=== PATIENT | female | born 1970 | race Caucasian/White ===

== ENCOUNTER 2016-08-01 06:21 | Day surgery (SDC) | payer OTHER ==
[~2016-08-01] VITALS: Ht 172.7 cm; Wt 78.5 kg
--- NOTE | ~2016-08-01 | O ---
[facility] [place] [address] OPERATIVE REPORT Name: CHELSEA ALMANZAR Room #: 150-7 [facility] Amanda#: [id number] Admission: 08/01/16 Attend Phys: Jairo Myrick Discharge: Date of : 66 Report #: [id number] THIS REPORT FOR: //name// CC: Jairo Hilario DATE OF SERVICE: 08/01/2016 PREOPERATIVE DIAGNOSES: Right shoulder pain, rotator cuff tear, impingement syndrome, acromioclavicular joint arthrosis. POSTOPERATIVE DIAGNOSES: Right shoulder rotator cuff tear involving upper border subscapularis and anterior supraspinatus, degenerative unstable flap tear of superior labrum, long head of biceps tendon tear, subacromial impingement syndrome, subacromial bursitis and acromioclavicular joint arthrosis. PROCEDURE PERFORMED: Right shoulder arthroscopy, rotator cuff repair of the subscapularis and supraspinatus, subacromial decompression, excision of distal clavicle, arthroscopic biceps tenodesis, extensive debridement. SURGEON: Jairo Castillo M.D. ALTERNATIVE MEDICINE PRACTITIONER: Beth Ayala PA-C. ANESTHESIA: General with preoperative interscalene block. FLUIDS: 1000 mL crystalloid. ESTIMATED BLOOD LOSS: Minimal. DESCRIPTION OF PROCEDURE: After proper identification of the patient and operative site in preoperative holding area, the operative site was signed by myself. Prophylactic antibiotics given. The patient elected to receive an interscalene block after reviewing the risks, benefits, alternatives and potential complications with anesthesia. After satisfactory block, the patient was brought back to the operative suite. After induction of satisfactory general endotracheal anesthesia, the right arm was examined. It was stable throughout a full arc of motion comparable to the preoperative assessment. The patient was then carefully positioned in the left lateral decubitus position. Beanbag and axillary roll were utilized to support the torso. The right shoulder was sterilely prepped and draped in usual manner and placed in 10 pounds balanced arthroscopic suspension. Qualified assistant head cashier was utilized throughout the entire procedure to aid in patient limb positioning, visualization of the arthroscope, instrument and suture passage as well as closure and sling application. [facility] [address] [place] [address] OPERATIVE REPORT Name: CHELSEA ALMANZAR Room #: 150-7 [facility] M.R.#: [id number] Admission: 08/01/16 Attend Phys: Jairo Myrick Discharge: Date of : 66 Report #: [id number] Posterior portal was established and was insufflated with an arthroscopic pump set at 40 mmHg. Anterior superior portal and an anterior inferior portal were created to aid in visualization purposes. The patient had an unstable flap tear of the superior labrum. This started at the approximate 2 o'clock position, extended superiorly and came back to approximately the 9:30 position. The unstable flap was debrided. Extensive degeneration was then noted of the superior labrum and there was a tear that extended into the long head of the biceps tendon. The long head of biceps tendons attachment on the superior labrum and glenoid was unstable as well as the tendon appeared to have subluxation on to the upper border of the subscapularis and there was a full thickness upper border tear of the subscapularis from the articular side. There also appeared to be a tear of the more anterior supraspinatus and the uncovered footprint was carefully debrided with a motorized shaver from this region. Chondral surfaces of the humeral head and glenoid otherwise appeared intact. The remainder of the rotator cuff was intact. Inferior labrum was intact as well as the more anterior inferior labrum. After the labral debridement, the long head of biceps tendon was released off the superior labrum and a tendon grafting stitch was applied. This was then retrieved out a separate more anterior and lateral portal from the subacromial space, so that this did not interfere with repair of the subscapularis. Free portion of the subscapularis was carefully debrided. Lesser tuberosity was prepared with sharper end curet and motorized shaver and a single 4.75 mm double-loaded SwiveLock anchor was inserted into the lesser tuberosity and suture limbs were passed in a horizontal mattress fashion through the subscapularis. These were then tied with nonsliding knots backed up with alternating half hitches. The repair construct was stable to probing and the tendon was nicely reduced to the tuberosity. The arthroscope was then introduced in the subacromial space. A thickened subacromial bursa was encountered. This was resected with motorized shaver. There was fraying on the undersurface of the coracoacromial arch and the was released but not resected off the anterolateral acromion. Prominence to the acromion was removed using motorized bur. Approximately 3-4 mm of bone was resected here. There were some enthesophytes about the inferior aspect of the acromioclavicular joint. Acromioclavicular joint arthrosis was noted. This area was seen preoperatively and a distal clavicle excision was performed using a motorized bur. Approximately, 10 mm of bone was resected and a 10 mm graft that could easily be opened within the joint space. Care was taken to preserve the superior capsular structures. The anterior supraspinatus demonstrated an approximate 12 mm crescent shape nonretracted tear. The tuberosity was prepared with a sharper end curet and motorized shaver. Any frayed portion of the tendon was carefully debrided through separate port off lateral border of the acromion. A 4.75-mm double loaded SwiveLock anchor was inserted medially. Suture lines were passed in a horizontal mattress fashion, tied with locking sliding knots backed up with alternating half hitches. These were then across and placed through a separate SwiveLock anchor more laterally based creating a double row construct. Repair was stable to probing. Subacromial space was thoroughly [facility] [address] [place] [address] OPERATIVE REPORT Name: JENELLECHELSEA LEZAMA Room #: 150-7 [facility] M.R.#: [id number] Admission: 08/01/16 Attend Phys: Jairo Myrick Discharge: Date of : 66 Report #: [id number] irrigated with normal saline. Portal was closed with simple nylon stitch. The patient will be immobilized in a sling and abduction pillow for 6 weeks postoperatively external rotation to neutral for the first 4 weeks. By: 1225 1401 Jairo Castillo MD /nt
--- NOTE | ~2016-08-01 | EKG ---
[address] [address] ELECTROCARDIOGRAM REPORT Name: CHELSEA ALMANZAR [id number] Admission: 08/01/16 Attend Phys: Jairo Myrick Discharge: 08/01/16 Date of : 66 Report #: [id number] THIS REPORT FOR: //name// [facility] Test Date: 2016-08-01 Test Time: 08:43:10 Pat Name: CHELSEA ALMANZAR Department: Room: 150 7 Gender: F Palm Gatherer: DONNA : 1970 Requested By: Jairo Castillo Order Number: [id number] MD: Kar Shepard Measurements Intervals Bostic Rate: 79 P: 8 CA: 137 QRS: 46 QRSD: 75 T: 45 QT: 369 QTc: 424 Interpretive Statements Sinus rhythm No significant abnormality No previous ECG available for comparison Electronically Signed On 08-03-2016 14:45:52 CDT by Kar Shepard [email or web address] <ELECTRONICALLY SIGNED> By: Kar Shepard MD, [facility] 08/03/16 1445 0843 2 Kar Shepard MD, FACC /EPI
[~2016-08-01 06:21] MED LIST: APAP500 PO; CITRATE OF MAG296 ML PO; FLAGYL500 MG PO; FLEXERIL PO; IBUPROFEN 800800 M1 PO; LEVAQUIN 500 M500 M9 PO; MIRALAX17 GM PO; MOBIC15 MG PO; NAPROSYN500 MG PO; NORFLEX100 MG PO; PERCOCET 5-3251 EACH PO; TRAMADOL 50 MG50 MG PO; WELLBUTRIN XL150 MG PO
[2016-08-01 09:00] VITALS: BP 132/83
[2016-08-01 13:29] VITALS: BP 132/83
[2016-08-01] MEDS ORDERED: PERCOCET PO (13:34)
[2016-08-01] MEDS ORDERED: ZOFRAN ODT4 MG DISSOLVE (13:34)
== END 2016-08-01 15:44 | disposition home or self-care (01) ==
LOC: OR 06:21 → TBA 06:21 → OR 09:51
DX: M75.101 Unspecified rotator cuff tear or rupture of right shoulder, not specified as traumatic (principal); M75.41 Impingement syndrome of right shoulder; M19.011 Primary osteoarthritis, right shoulder; F90.9 Attention-deficit hyperactivity disorder, unspecified type; F32.9 Major depressive disorder, single episode, unspecified; F17.210 Nicotine dependence, cigarettes, uncomplicated; Z90.49 Acquired absence of other specified parts of digestive tract
CPT/HCPCS: 50010; 50101; 50172; 50386; 50417; 50597; 50612; 50950; 51038; 51445; 51847; 53610; 54170; 55430; 56527; 56530; 62110; 62900; 64007; 70005

== ENCOUNTER → 2016-12-01 | Outpatient (CLI) | payer OTHER ==
[~2016-12-01] MED LIST changes: +PERCOCET PO; +ZOFRAN ODT4 MG DISSOLVE
== END ==
LOC: MRI 07:03
DX: M50.322 Other cervical disc degeneration at C5-C6 level (principal); R20.0 Anesthesia of skin

== ENCOUNTER → 2017-01-09 | Outpatient (CLI) | payer OTHER ==
[~2017-01-09] VITALS: Ht 152.4 cm; Wt 83.6 kg
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
[2017-01-09 09:26] VITALS: BP 132/83
== END | disposition home or self-care (01) ==
LOC: PAIN 07:06
DX: M54.12 Radiculopathy, cervical region (principal); M48.02 Spinal stenosis, cervical region; Z68.36 Body mass index [BMI] 36.0-36.9, adult; Z98.890 Other specified postprocedural states; F41.9 Anxiety disorder, unspecified; F32.9 Major depressive disorder, single episode, unspecified; Z79.899 Other long term (current) drug therapy; Z87.891 Personal history of nicotine dependence; R00.0 Tachycardia, unspecified; Z90.49 Acquired absence of other specified parts of digestive tract

== ENCOUNTER → 2017-01-30 | Outpatient (CLI) | payer OTHER ==
[~2017-01-30] VITALS: Ht 152.4 cm; Wt 82.5 kg
--- NOTE | ~2017-01-30 | HPC ---
[facility] [place] [address] [place] [address] PAIN MANAGEMENT CONSULTATION Name: CHELSEA ALMANZAR Room #: REG BABATUNDESanthosh Patel#: [id number] Admission: 01/30/17 Attend Phys: Yuan Matute DO Discharge: Date of : 66 Report #: [id number] THIS REPORT FOR: //name// CC: Vishnu Matute The patient is a pleasant 46-year-old female, seen in consultation, given a single cervical epidural injection. She reported about 65-80% relief overall ongoing, having some ongoing radicular symptoms on the right side, however. PHYSICAL EXAMINATION: Shows positive Lhermitte's, slight decreased right deltoid strength (she is status post right shoulder rotator cuff repair about 6 months ago). Hand grasp is symmetric. Deep tendon reflexes are getting closer to symmetric. We reviewed her MRI findings of cervical spine; while there is noted pathology, it does not appear to be surgical. ASSESSMENT: Symptomatic cervical radiculopathy with clinical improvement following 1 epidural injection, symptoms remain problematic. RECOMMENDATION: Repeat epidural injection under fluoroscopy today. Follow up in 3 weeks for reevaluation. PROCEDURE: Cervical epidural injection under fluoroscopy. PROCEDURE NOTE: After written and informed consent was obtained including risk of dural puncture, spinal cord trauma, paralysis and increased pain, the patient was taken to the fluoroscopy suite and placed in the prone position, with appropriate abdominal bolstering, neck was flexed, palms under the thighs. Skin was prepped with ChloraPrep. Sterile draping was applied. Skin wheal with 1% Xylocaine was raised. A 22-gauge 3-1/2 inch epidural Tuohy needle was placed via a midline approach at the C7/T1 interspace, advanced under biplanar fluoroscopy using continuous loss of resistance. With appropriate loss of resistance at the expected depth on lateral view, the glass loss of resistance syringe was disconnected. A low volume extension tubing was connected to the needle and a 5 mL syringe. Negative aspiration for cerebrospinal fluid or blood was noted. A 1 mL of Omnipaque was injected which showed spread within the epidural space on biplanar fluoroscopy. This was followed with 80 mg of triamcinolone plus 1 mL of 1.5% preservative Xylocaine. Needle was withdrawn to the interspinous ligament, 0.5 mL of Xylocaine was used to flush the needle. The needle was then completely withdrawn. The area was cleansed. Band-Aid was applied. The patient was allowed to move off the procedure table and ambulated [address] [address] PAIN MANAGEMENT CONSULTATION Name: CHELSEA ALMANZAR [id number] Admission: 01/30/17 Attend Phys: Yuan Matute DO Discharge: Date of : 66 Report #: [id number] to the recovery room, monitored for an appropriate period of time, discharged in good and stable condition. <ELECTRONICALLY SIGNED> By: Yuan Matute DO 01/30/17 0926 0839 0902 Yuan Matute DO /nt
[2017-01-30 08:20] VITALS: BP 127/69
== END | disposition home or self-care (01) ==
LOC: PAIN 07:05
DX: M54.12 Radiculopathy, cervical region (principal); F17.200 Nicotine dependence, unspecified, uncomplicated

== ENCOUNTER → 2017-05-21 | Outpatient (CLI) | payer OTHER ==
[~2017-05-21] MED LIST changes: +CELEXA20 MG PO
== END ==
LOC: MRI 05:27
DX: M75.101 Unspecified rotator cuff tear or rupture of right shoulder, not specified as traumatic (principal)

== ENCOUNTER → 2017-05-25 | Outpatient (CLI) | payer OTHER ==
[~2017-05-25] VITALS: Ht 152.4 cm; Wt 84.5 kg
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
[2017-05-25 09:10] VITALS: BP 135/84
== END | disposition home or self-care (01) ==
LOC: PAIN
DX: M54.12 Radiculopathy, cervical region (principal); Z68.36 Body mass index [BMI] 36.0-36.9, adult; Z79.899 Other long term (current) drug therapy; F17.210 Nicotine dependence, cigarettes, uncomplicated

== ENCOUNTER → 2017-06-09 | Outpatient (CLI) | payer OTHER | LOC: MRI 06-08 13:01 → PAIN 06-08 14:17 → MRI 06-08 16:27 | DX: M54.12 Radiculopathy, cervical region (principal) ==

== ENCOUNTER → 2017-10-02 | Outpatient (CLI) | payer OTHER ==
[~2017-10-02] VITALS: Ht 152.4 cm; Wt 82.6 kg
--- NOTE | ~2017-10-02 | HPC ---
[facility] [place] [address] PAIN MANAGEMENT CONSULTATION Name: CHELSEA ALMANZAR Room #: REG SKY Amanda#: [id number] Admission: 10/02/17 Attend Phys: Yuan Matute DO Discharge: Date of : 66 Report #: [id number] THIS REPORT FOR: //name// CC: Vishnu Matute HISTORY: The patient is a very pleasant 47-year-old female. She had prior been treated for symptomatic cervical radiculopathy, cervical epidural injections in 12/2016 and 01/2017 and another injection in May. While this has helped some with radicular pain, she still has ongoing pain in the right neck, exacerbated with cervical rotation and side bending. Radicular component are fairly nominal, though occasionally her right arm does "go to sleep." She does not have any specific radicular symptoms at this time. We looked at the diagnostic studies noting cervical spondylosis. With ongoing pain in the right side of the neck, we elected to move forward with cervical facets today. PHYSICAL EXAMINATION: VITAL SIGNS: Stable as noted in the EMR. Cervical range of motion is limited. Tenderness over the superior cervical facets on the right. No radicular component noted at this time. ASSESSMENT: 1. Symptomatic cervical spondylosis without myelopathy. 2. Cervical radiculopathy by history, symptoms relatively quiescent at this time. 3. Solitary kidney precluding use of NSAID agents. RECOMMENDATIONS: 1. The patient requested renewal of cyclobenzaprine, she uses this occasionally at bedtime. Generally, it had been written by her primary care physician. I will be happy to renew this prescription today. 2. Cervical facet injections under fluoroscopy x3, right C2-C3, C3-C4, C4-C5. 3. Follow up in 2 weeks for evaluation. If she gets 60-70% relief with the steroid injection, we will have her cancel her appointment and follow up on an as-needed basis. If she gets short-term relief with the cervical facets but no long-term relief, we may consider medial branch dorsal rami diagnostic block in consideration of radiofrequency neurolysis of the same. ASSESSMENT: Symptomatic cervical spondylosis without myelopathy. PROCEDURE: Right C2-C3, C3-C4 and C4-C5 cervical facet joint injection under fluoroscopy. PROCEDURE: After written informed consent was obtained, the patient was taken to the fluoroscopy suite and placed in prone position. After appropriate prep [address] [address] PAIN MANAGEMENT CONSULTATION Name: CHELSEA ALMANZAR TEJA [facility]: REG [facility] [id number] Admission: 10/02/17 Attend Phys: Yuan Matute DO Discharge: Date of : 66 Report #: [id number] and drape, skin wheal with Xylocaine x3 was raised. A 22-gauge stylet needle was placed to contact the posterior aspect of the right C2-C3, right C3-C4 and right C4-C5 cervical facets. AP projection showed good needle placement in the middle of the right lateral mass, lateral projections showed good needle placement in the posterior aspect of the joint. 2.7 mg of Decadron plus 1 mL of 0.5% preservative-free bupivacaine was injected at all 3 sites. All 3 needles were removed. The area was cleansed. Band-Aid applied. The patient was monitored for an appropriate period of time, discharged in good and stable condition. Fluoroscopy time was under 20 seconds. <ELECTRONICALLY SIGNED> By: Yuan Matute DO 10/05/17 0710 [id number] 1829 Yuan Matute DO /nt
[2017-10-02 08:17] VITALS: BP 119/61
== END | disposition home or self-care (01) ==
LOC: PAIN 06:55
DX: M47.812 Spondylosis without myelopathy or radiculopathy, cervical region (principal); G89.29 Other chronic pain; Z98.890 Other specified postprocedural states; Z88.0 Allergy status to penicillin; Z88.2 Allergy status to sulfonamides; Z88.8 Allergy status to other drugs, medicaments and biological substances; Z79.899 Other long term (current) drug therapy

== ENCOUNTER → 2017-10-22 | Outpatient (CLI) | payer OTHER ==
[~2017-10-22] VITALS: Ht 152.4 cm; Wt 82.6 kg
--- NOTE | ~2017-10-22 | HPC ---
[facility] [place] [address] PAIN MANAGEMENT CONSULTATION Name: CHELSEA ALMANZAR Room #: REG BABATUNDESanthosh Patel#: [id number] Admission: 10/22/17 Attend Phys: Yuan Matute DO Discharge: Date of : 66 Report #: [id number] THIS REPORT FOR: //name// CC: Vishnu Matute DATE OF SERVICE: 10/22/2017 The patient is a very pleasant 47-year-old [employer] employee prior seen for symptomatic cervical radiculopathy in the fall of last year. Pain is primarily right-sided neck. She does not have any radicular component of pain. I did do right-sided C2-C3, C3-C4, and C4-C5 cervical facet joint injections at last visit 10/02/2017. The patient returns to pain clinic today noting she has had very good relief with this, specifically noting 50% improvement. She still has some ongoing improvement. PHYSICAL EXAMINATION: Does note pain in the right side of the neck, exacerbated with rotation and side bending. Negative neural tensioning symptoms (negative Lhermitte's). Upper extremity strength is generally preserved. Skin integument is intact. Tender to palpation over the cervical facets. Of note, the patient is status post right rotator cuff repair, she rehabbed well and the range of motion in the right shoulder and arm is excellent. DIAGNOSTIC STUDIES: MRI of the cervical spine from 12/01/2016 notes degenerative disk changes with mild retrolisthesis of C4 on C5, posterior ridging and uncinate changes. ASSESSMENT: Symptomatic cervical spondylosis by clinical exam and history in a patient with a solitary kidney, precluding use of nonsteroidal antiinflammatory drug agents. RECOMMENDATION: If the patient had had good short term relief, i.e., as long as the local anesthetic lasted for several hours, would consider medial branch dorsal rami diagnostic block and neurolysis. Given the patient has had about 50% relief with ongoing relief, there is clearly a component of inflammation and she is getting some relief from the steroid. At this point, I would recommend repeating right C2-C3, C3-C4 and C4-C5 cervical facet joint injections under fluoroscopy. If this again affords incremental relief, we will simply see the patient on as needed basis. If, however, pain starts to recur and she has only modest relief, I would then consider medial branch dorsal rami diagnostic blocks and consideration of neurolysis of same. ASSESSMENT: Symptomatic cervical spondylosis without myelopathy, M47.812. [address] [address] PAIN MANAGEMENT CONSULTATION Name: CHELSEA ALMANZAR Room #: REG [facility].#: [id number] Admission: 10/22/17 Attend Phys: Yuan Matute DO Discharge: Date of : 66 Report #: [id number] RECOMMENDATIONS: We will seek authorization for right C2-C3, C3-C4 and C4-C5 cervical facet joint injections under fluoroscopy. <ELECTRONICALLY SIGNED> By: Yuan Matute DO 10/23/17 0829 1605 1832 Yuan Matute DO /nt
[2017-10-22 08:11] VITALS: BP 114/79
== END ==
LOC: PAIN 07:48
DX: M47.812 Spondylosis without myelopathy or radiculopathy, cervical region (principal); M54.12 Radiculopathy, cervical region

== ENCOUNTER → 2018-02-03 | Outpatient (CLI) | payer OTHER | LOC: RAD 01:18 | DX: Z12.31 Encounter for screening mammogram for malignant neoplasm of breast (principal) ==

== ENCOUNTER → 2018-02-23 | Outpatient (CLI) | payer OTHER ==
[~2018-02-23] MED LIST changes: +DOXYCYCLINE 10100 MG PO; +PROAIR RESPICL90 MCG INH; +TYLENOL EXTRA500 MG PO
== END ==
LOC: RAD 11:05
DX: R05 Cough (principal); R06.02 Shortness of breath

== ENCOUNTER → 2018-02-24 | Outpatient (CLI) | payer OTHER ==
[~2018-02-24] VITALS: Ht 152.4 cm; Wt 84.6 kg
--- NOTE | ~2018-02-24 | HPC ---
[facility] [address] [place] [address] PAIN MANAGEMENT CONSULTATION Name: CHELSEA ALMANZAR [facility] [id number] Admission: 02/24/18 Attend Phys: Yo Matute DO Discharge: Date of : 66 Report #: [id number] THIS REPORT FOR: //name// CC: Rlaeigh Mares Hilario DATE OF SERVICE: 02/24/2018 REFERRING PHYSICIAN: Raleigh Carey M.D. CHIEF COMPLAINT: Neck pain and right upper extremity pain with paresthesias. HISTORY OF PRESENT ILLNESS: As you know, the patient is a pleasant 47-year-old female followed by my partner, Dr. Yuan Matute originally for cervical spondylosis with radicular symptoms and chronic cervical radiculopathy. The patient has returned today in followup visit indicating a pain level of 5/10. She states she continues to experience numbness, tingling, throbbing and aching. She indicates pain is exacerbated with lying down, turning her head and lifting. Pain medication and massage therapy appeared to improve pain. The patient underwent intra-articular facet injections on the right at C2-C3, C3-C4, C4-C5 with improvement of about 0%-5%. She returns today to adjust medications and discuss other treatment options. ALLERGIES: PENICILLIN, SULFA, EPINEPHRINE, ERYTHROMYCIN, ADHESIVE TAPE and NICKEL. CURRENT MEDICATIONS: Bupropion XL 150 mg once a day, citalopram 20 mg once a day, cyclobenzaprine 10 mg p.o. at bedtime, doxycycline 100 mg twice a day, albuterol 2 puffs q. 4 hours p.r.n., Tylenol Extra Strength 500 mg q. 4 hours p.r.n. SOCIAL HISTORY: The patient denies tobacco, alcohol or IV or illicit drug use. She is unaccompanied today at today's visit. IMAGING DATA: There is no new imaging available. PHYSICAL EXAMINATION: VITAL SIGNS: Blood pressure 134/79, pulse 82 and respiratory rate 16 and unlabored. The patient is 97% on room air. Height 5 feet tall, weight 186.4 pounds and BMI calculated 36.4. GENERAL: Well-developed, well-nourished, well-hydrated, class 1 morbidly obese 47-year-old female, appearing stated age, placing current pain score 5/10. HEENT: Normocephalic and atraumatic. Pupils equal, round and reactive to light. EXTREMITIES: Show no clubbing, no [place]osis [place] [address] PAIN MANAGEMENT CONSULTATION Name: CHELSEA ALMANZAR Room #: REG [facility].#: [id number] Admission: 02/24/18 Attend Phys: Yo Matute DO Discharge: Date of : 66 Report #: [id number] MUSCULOSKELETAL: Cervical provocation testing is again met with increasing pain. This is noted with extension, rotation, mainly on the right side. Neural tensioning of the right shows negative for Lembert sign, negative for Spurling's test. Traction improves cervical spine pain. There is some palpatory tenderness over the paraspinal musculature. No spinous process tenderness. ASSESSMENT: 1. Chronic cervical radiculopathy. 2. Cervical spondylosis with radicular symptoms. 3. Cervical degeneration. 4. Chronic intractable pain. PLAN: 1. The patient returns today in followup visit indicating 0%-5% improvement in overall pain with the intra-articular facet injections done on the right side. Unfortunately, I believe further more aggressive treatment may be necessary. I do not recommend moving forward with radiofrequency lesioning of the medial branch nerves given the lack of improvement with the intra-articular facet injections. Certainly, the patient can seek further evaluation, though we here at [facility] do not offer radiofrequency lesioning of the cervical region. She would have to be referred to a new pain physician. All information could be provided to this physician upon request when she transfers her care if necessary. We would certainly be willing to provide the information to her new pain physician if she chooses to move forward with radiofrequency lesioning though given the lack of improvement with the intra-articular facet injections, I would not recommend this. 2. The patient and I did discuss the possibility of rotating medication. She is noticing decreased efficacy with current therapy. We discussed the possibility of adding nonsteroidal anti-inflammatories and changing out her muscle relaxant at this time, the patient does not wish to make any changes. She wishes to consider her options. 3. We will be available to see the patient back in followup visit to discuss medication changes if necessary, though I would not recommend initiation of any opioid medication in this patient's case. Certainly other more conservative treatment options can be discussed. The patient will be returning to see her neurosurgeon in regards to ongoing neck issues and her lack of efficacy with the intra-articular facet injections requested. We will be available to see her back on an as needed basis. <ELECTRONICALLY SIGNED> By: Yo Matute DO 03/02/18 0846 [id number] 0814 Yo Matute DO /nt
[2018-02-24 08:59] VITALS: BP 134/79
== END ==
LOC: PAIN
DX: M54.2 Cervicalgia (principal); M25.511 Pain in right shoulder; M79.641 Pain in right hand; M79.601 Pain in right arm; Z79.899 Other long term (current) drug therapy; Z79.891 Long term (current) use of opiate analgesic

== ENCOUNTER → 2018-04-19 | Outpatient (CLI) | payer OTHER | LOC: RAD 12:21 | DX: R06.02 Shortness of breath (principal) ==

== ENCOUNTER → 2018-05-25 | Outpatient (CLI) | payer OTHER | LOC: RAD 14:24 | DX: R91.8 Other nonspecific abnormal finding of lung field (principal) ==

== ENCOUNTER → 2018-06-09 | Outpatient (CLI) | payer OTHER | LOC: RAD 13:52 | DX: R91.8 Other nonspecific abnormal finding of lung field (principal) ==

== ENCOUNTER → 2018-07-07 | Outpatient (CLI) | payer OTHER | LOC: PUL 09:16 | DX: R06.02 Shortness of breath (principal) ==

== ENCOUNTER → 2018-10-12 | Outpatient (CLI) | payer OTHER | LOC: RAD 14:34 | DX: M25.552 Pain in left hip (principal) ==

== ENCOUNTER → 2019-05-26 | Outpatient (CLI) | payer OTHER | LOC: RAD 13:36 | DX: R05 Cough (principal); R06.00 Dyspnea, unspecified ==